=== PATIENT | female | born 1990 | race African-American/Black ===

== ENCOUNTER 2021-05-27 19:15 | Emergency (ER) | payer OTHER ==
[~2021-05-27] VITALS: Ht 162.6 cm; Wt 59.9 kg
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
== END 2021-05-27 20:35 | disposition home or self-care (01) ==
LOC: ER 19:15
DX: M25.511 Pain in right shoulder (principal); Z53.21 Procedure and treatment not carried out due to patient leaving prior to being seen by health care provider